=== PATIENT | male | born 1955 | race African-American/Black ===

== ENCOUNTER 2017-09-21 19:46 | Emergency (ER) | payer MEDICAID ==
[~2017-09-21] VITALS: Ht 182.9 cm; Wt 80.0 kg
[~2017-09-21 19:46] MED LIST: no home med
[2017-09-21 19:59] VITALS: BP 145/88
== END 2017-09-21 22:30 | disposition left against medical advice (07) ==
LOC: ER 20:09
DX: R10.9 Unspecified abdominal pain (principal); Z53.21 Procedure and treatment not carried out due to patient leaving prior to being seen by health care provider

== ENCOUNTER 2018-04-09 23:19 | Emergency (ER) | payer MEDICAID ==
[~2018-04-09] VITALS: Ht 180.3 cm; Wt 80.5 kg
[2018-04-10] MEDS ORDERED: LIDOCAINE HCL 1% 20ML VIAL (Pyxis) INJ INFIL ONE (02:00)
[2018-04-10] MEDS ORDERED: LIDOCAINE/EPINEPHR/TETRACAINE 3ML TP ONE (02:00)
[2018-04-10] MEDS ORDERED: IBUPROFEN 600MG TABLET PO ONE (02:00)
[2018-04-10 03:54] VITALS: BP 130/78
== END 2018-04-10 03:54 | disposition home or self-care (01) ==
LOC: ER 23:19
DX: S01.01XA Laceration without foreign body of scalp, initial encounter (principal); I10 Essential (primary) hypertension; F17.200 Nicotine dependence, unspecified, uncomplicated; K46.9 Unspecified abdominal hernia without obstruction or gangrene; W22.8XXA Striking against or struck by other objects, initial encounter; Y93.89 Activity, other specified; Y92.89 Other specified places as the place of occurrence of the external cause; Y99.8 Other external cause status
CPT/HCPCS: 12002; 70450; 99284; J3490

== ENCOUNTER 2018-10-08 15:39 | Inpatient (IN) | payer MEDICARE, MEDICAID ==
[~2018-10-08] VITALS: Ht 180.3 cm; Wt 81.2 kg
[2018-10-08] MEDS ORDERED: ALBUTEROL (0.083%) 2.5MG/3ML NEB HHN STA ×2 (16:25→18:33)
[2018-10-08] MEDS ORDERED: PREDNISONE 20MG TABLET PO STA (16:25)
[2018-10-08] MEDS ORDERED: IPRATROPIUM BROMIDE (0.02%) 0.5MG/2.5ML NEB HHN STA ×2 (16:25→18:33)
[2018-10-08] MEDS ORDERED: ASPIRIN 81MG TABLET PO ONE (16:30)
[2018-10-08] MEDS ORDERED: SODIUM CHLORIDE 0.9% 1000ML BAG (SEPSIS BOLUS) IV ONE (16:30)
[2018-10-08 16:51] LABS: HEMATOCRIT. 41.2 % (42.0-52.0); HEMOGLOBIN. 13.9 g/dL (14.0-18.0); MEAN CORPUSCULAR HEMOGLOBIN 32.8 pg (28.0-32.0); MEAN CORPUSCULAR VOLUME 97.5 fL (80.0-94.0); MEAN PLATELET VOLUME 10.3 fl (7.4-10.4); PLATELET 103 x1000/uL (130-400); RED BLOOD CELL COUNT 4.22 mill/uL (4.7-6.1)
[2018-10-08 16:52] LABS: CHLORIDE 111 mEq/L (98-107)
[2018-10-08 16:54] LABS: INR 1.1; PROTHROMBIN TIME 11.4 sec (9.6-11.0)
[2018-10-08 17:10] LABS: PLATELET ESTIMATE DECREASED
[2018-10-08 23:05] VITALS: BP 134/83
[2018-10-09] MEDS ORDERED: IPRATROPIUM/ALBUTEROL 0.5-3(2.5)MG/3ML NEB HHN PRN (01:45)
[2018-10-09] MEDS ORDERED: MORPHINE SULFATE 2 MG/ML CPJ (NOT FOR IM USE) IV PRN (01:45)
[2018-10-09 04:00] VITALS: BP 128/83
[2018-10-09] MEDS ORDERED: LORAZEPAM 2MG/ML CPJ IV PRN (06:30)
[2018-10-09] MEDS ORDERED: DIPHENHYDRAMINE 50MG/ML VIAL IV PRN (06:30)
[2018-10-09] MEDS ORDERED: DOCUSATE SODIUM 100MG CAPSULE PO PRN (06:30)
[2018-10-09] MEDS ORDERED: CLONIDINE 0.1MG TABLET PO PRN (06:30)
[2018-10-09] MEDS ORDERED: HYDRALAZINE 20MG/ML VIAL IV PRN (06:30)
[2018-10-09] MEDS ORDERED: ONDANSETRON HCL 4MG/2ML INJ IV PRN (06:30)
[2018-10-09] MEDS ORDERED: NA PHOS,M-B/NA PHOS,DI-BA ENEMA 118ML PR PRN (06:30)
[2018-10-09] MEDS ORDERED: MAGNESIUM/ALUMINUM HYDROXIDE/SIMETHICONE 30ML UDC PO PRN (06:30)
[2018-10-09] MEDS ORDERED: GUAIFENESIN 200MG/10ML SUGAR FREE UDC PO PRN (06:30)
[2018-10-09] MEDS ORDERED: HYDROCODONE/ACETAMINOPHEN 10/325MG TABLET PO PRN (06:30)
[2018-10-09 07:44] LABS: CHLORIDE 112 mEq/L (98-107)
[2018-10-09 08:00] VITALS: BP 117/77
[2018-10-09 08:06] LABS: BASOPHILS % 0.1 % (0.0-2.0); HEMATOCRIT. 38.1 % (42.0-52.0); HEMOGLOBIN. 12.8 g/dL (14.0-18.0); LYMPHOCYTES % 20.9 % (20.0-50.0); MEAN CORPUSCULAR HEMOGLOBIN 32.2 pg (28.0-32.0); MEAN CORPUSCULAR VOLUME 96.1 fL (80.0-94.0); MEAN PLATELET VOLUME 10.5 fl (7.4-10.4); MONOCYTES % 14.2 % (2.0-8.0); NEUTROPHILS % 64.8 % (40.0-76.0); PLATELET 90 x1000/uL (130-400); RED BLOOD CELL COUNT 3.96 mill/uL (4.7-6.1); RED CELL DISTRIBUTION WIDTH 13.8 % (11.6-14.6)
[2018-10-09] MEDS ORDERED: METHYLPREDNISOLONE SOD SUCC 125 MG/2 ML VIAL IV SCH (09:00)
[2018-10-09] MEDS: ENOXAPARIN 40MG/0.4ML SYR SUBCUT SCH (09:00)
[2018-10-09] MEDS ORDERED: FUROSEMIDE 40MG TABLET PO NR (10:00)
[2018-10-09] MEDS: ASPIRIN 81MG EC TABLET PO SCH (10:21)
[2018-10-09 12:00] VITALS: BP 124/81
[2018-10-09] MEDS: IPRATROPIUM/ALBUTEROL 0.5-3(2.5)MG/3ML NEB HHN SCH ×2 (12:32→20:59)
[2018-10-09 12:37] LABS: T4 FREE 1.43 ng/dL (0.76-1.46)
[2018-10-09 15:33] LABS: CLARITY URINE CLEAR (CLEAR); COLOR URINE YELLOW (YELLOW); KETONES URINE NEGATIVE (NEGATIVE); LEUKOCYTE ESTERASE URINE NEGATIVE (NEGATIVE); NITRITE URINE NEGATIVE (NEGATIVE); OCCULT BLOOD URINE NEGATIVE (NEGATIVE); PROTEIN URINE NEGATIVE (NEGATIVE); SPECIFIC GRAVITY URINE 1.011 (1.005-1.030); UROBILINOGEN URINE 0.2 E.U./dL (0.2-1.0)
[2018-10-09 16:00] VITALS: BP 117/77
[2018-10-09 16:58] LABS: CREATINE KINASE MB FRACTION 3.3 ng/mL (0.5-3.6)
[2018-10-09] MEDS: SODIUM CHLORIDE 0.9% INJ 3ML FLUSH IVF SCH (17:51)
[2018-10-09 18:04] LABS: *BARBITURATES SCREEN URINE NEGATIVE (NEGATIVE)
[2018-10-09 18:05] LABS: *BENZODIAZEPINES SCREEN URINE NEGATIVE (NEGATIVE); *COCAINE SCREEN URINE PRESUMTIVE POSITIVE (NEGATIVE); METHADONE URINE SCREEN NEGATIVE (NEGATIVE); OPIATES URINE SCREEN NEGATIVE (NEGATIVE)
[2018-10-09 18:07] LABS: *AMPHETAMINES SCREEN URINE NEGATIVE (NEGATIVE); CANNABINOID URINE SCREEN NEGATIVE (NEGATIVE); PHENCYCLIDINE URINE SCREEN NEGATIVE (NEGATIVE)
[2018-10-09 20:00] VITALS: BP 117/63
[2018-10-10] VITALS: BP 129/85
[2018-10-10 00:53] LABS: CREATINE KINASE MB FRACTION 3.3 ng/mL (0.5-3.6)
[2018-10-10] MEDS: IPRATROPIUM/ALBUTEROL 0.5-3(2.5)MG/3ML NEB HHN SCH ×4 (01:30→20:41)
[2018-10-10] MEDS: ACETAMINOPHEN 325MG TABLET PO PRN ×2 (03:00→17:19)
[2018-10-10 04:00] VITALS: BP 134/90
[2018-10-10] MEDS: SODIUM CHLORIDE 0.9% INJ 3ML FLUSH IVF SCH ×3 (05:57→21:08)
[2018-10-10 07:58] VITALS: BP 144/95
[2018-10-10] MEDS: ENOXAPARIN 40MG/0.4ML SYR SUBCUT SCH (08:24)
[2018-10-10] MEDS: ASPIRIN 81MG EC TABLET PO SCH (08:25)
[2018-10-10 08:56] LABS: BASOPHILS % 0.2 % (0.0-2.0); EOSINOPHILS % 0.4 % (0.0-5.0); HEMATOCRIT. 41.6 % (42.0-52.0); HEMOGLOBIN. 14.2 g/dL (14.0-18.0); LYMPHOCYTES % 25.7 % (20.0-50.0); MEAN CORPUSCULAR HEMOGLOBIN 33.1 pg (28.0-32.0); MEAN CORPUSCULAR VOLUME 97.2 fL (80.0-94.0); MEAN PLATELET VOLUME 10.8 fl (7.4-10.4); MONOCYTES % 7.7 % (2.0-8.0); PLATELET 93 x1000/uL (130-400); RED BLOOD CELL COUNT 4.28 mill/uL (4.7-6.1); RED CELL DISTRIBUTION WIDTH 14.2 % (11.6-14.6)
[2018-10-10 09:13] LABS: CHLORIDE 106 mEq/L (98-107)
[2018-10-10 11:43] VITALS: BP_SYST 116; BP_SYST 126; BP_DIAS 63; BP_DIAS 95
[2018-10-10 15:57] VITALS: BP 124/71
[2018-10-10] MEDS: LOSARTAN POTASSIUM 25 MG TABLET PO SCH (16:36)
[2018-10-10 20:00] VITALS: BP 124/86
[2018-10-10] MEDS: CARVEDILOL 3.125 MG TABLET PO SCH (21:08)
[2018-10-11] VITALS: BP 120/79
[2018-10-11] MEDS: ACETAMINOPHEN 325MG TABLET PO PRN ×2 (01:11→10:44)
[2018-10-11] MEDS: IPRATROPIUM/ALBUTEROL 0.5-3(2.5)MG/3ML NEB HHN SCH ×2 (02:31→13:51)
[2018-10-11 04:00] VITALS: BP 119/66
[2018-10-11] MEDS: SODIUM CHLORIDE 0.9% INJ 3ML FLUSH IVF SCH (06:28)
[2018-10-11 07:56] VITALS: BP 140/95
[2018-10-11] MEDS: LOSARTAN POTASSIUM 25 MG TABLET PO SCH (08:45)
[2018-10-11] MEDS: CARVEDILOL 3.125 MG TABLET PO SCH (08:45)
[2018-10-11] MEDS: ASPIRIN 81MG EC TABLET PO SCH (08:45)
[2018-10-11] MEDS: ENOXAPARIN 40MG/0.4ML SYR SUBCUT SCH (08:46)
[2018-10-11 10:06] VITALS: BP 140/95
[2018-10-11 10:54] LABS: BASOPHILS % 0.3 % (0.0-2.0); EOSINOPHILS % 1.7 % (0.0-5.0); HEMATOCRIT. 42.4 % (42.0-52.0); HEMOGLOBIN. 14.4 g/dL (14.0-18.0); LYMPHOCYTES % 23.9 % (20.0-50.0); MEAN CORPUSCULAR HEMOGLOBIN 32.7 pg (28.0-32.0); MEAN CORPUSCULAR VOLUME 96.6 fL (80.0-94.0); MEAN PLATELET VOLUME 10.9 fl (7.4-10.4); MONOCYTES % 13.8 % (2.0-8.0); NEUTROPHILS % 60.3 % (40.0-76.0); PLATELET 109 x1000/uL (130-400); RED BLOOD CELL COUNT 4.39 mill/uL (4.7-6.1); RED CELL DISTRIBUTION WIDTH 14.1 % (11.6-14.6)
[2018-10-11 11:16] LABS: CHLORIDE 106 mEq/L (98-107)
== END 2018-10-11 14:30 | disposition home or self-care (01) | DRG 140 ==
LOC: ER 15:50 → EDBEDREQ 16:35 → 8WST 18:36 → EDBEDREQTM 18:38 → EDBEDREQ 18:38 → ENRESERV 22:33
PROVIDERS: ADMIT Internal Medicine; ATTEND Internal Medicine
DX: J44.1 Chronic obstructive pulmonary disease with (acute) exacerbation (principal); J96.00 Acute respiratory failure, unspecified whether with hypoxia or hypercapnia; I27.20 Pulmonary hypertension, unspecified; I11.9 Hypertensive heart disease without heart failure; I10 Essential (primary) hypertension; D72.819 Decreased white blood cell count, unspecified; K43.9 Ventral hernia without obstruction or gangrene; F17.210 Nicotine dependence, cigarettes, uncomplicated; E78.5 Hyperlipidemia, unspecified; I08.0 Rheumatic disorders of both mitral and aortic valves; I42.9 Cardiomyopathy, unspecified; K42.9 Umbilical hernia without obstruction or gangrene
CPT/HCPCS: 36415; 71045; 74018; 76705; 80048; 80061; 80305; 82550; 82553; 83036; 83605; 83880; 84439; 84443; 84484; 85379; 93005; 93306; 94640; 99291; J1650; J2930; J7030; J7512; J7611; J7620

== ENCOUNTER 2019-01-12 11:13 | Inpatient (IN) | payer MEDICARE, MEDICAID ==
[~2019-01-12] VITALS: Ht 167.6 cm; Wt 80.7 kg
[2019-01-12 12:37] LABS: BASOPHILS % 0.2 % (0.0-2.0); EOSINOPHILS % 0.3 % (0.0-5.0); HEMATOCRIT. 41.4 % (42.0-52.0); HEMOGLOBIN. 13.8 g/dL (14.0-18.0); LYMPHOCYTES % 25.1 % (20.0-50.0); MEAN CORPUSCULAR HEMOGLOBIN 32.9 pg (28.0-32.0); MEAN CORPUSCULAR VOLUME 98.6 fL (80.0-94.0); MEAN PLATELET VOLUME 10.2 fl (7.4-10.4); MONOCYTES % 10.3 % (2.0-8.0); NEUTROPHILS % 64.1 % (40.0-76.0); PLATELET 98 x1000/uL (130-400); RED CELL DISTRIBUTION WIDTH 14.7 % (11.6-14.6)
[2019-01-12 12:47] LABS: CHLORIDE 111 mEq/L (98-107)
[2019-01-12] MEDS ORDERED: FUROSEMIDE 20MG/2ML VIAL IVP ONE (13:15)
[2019-01-12] MEDS ORDERED: IPRATROPIUM/ALBUTEROL 0.5-3(2.5)MG/3ML NEB HHN PRN (15:00)
[2019-01-12 15:40] LABS: BG BASE EXCESS -3.2 mmol/L (-2.0-2.0); BG CARBOXYHEMOGLOBIN 0.6 % (0.5-1.5); BG DEOXYHEMOGLOBIN 3.9 % (0.0-5.0); BG HCO3 ACT 21.2 mmol/L (22.0-26.0); BG METHEMOGLOBIN 0.1 % (0.0-1.5); BG OXYGEN SATURATION 96.1 % (92.0-98.5); BG OXYHEMOGLOBIN 95.4 % (94.0-97.0); BG PCO2 36.3 mmHg (35.0-45.0); BG PH 7.384 (7.350-7.450); BG SAMPLE SITE RIGHT RADIAL; BG VENT MODE NASAL CANNULA
[2019-01-12 16:00] LABS: *AMPHETAMINES SCREEN URINE NEGATIVE (NEGATIVE); *BARBITURATES SCREEN URINE NEGATIVE (NEGATIVE); *BENZODIAZEPINES SCREEN URINE NEGATIVE (NEGATIVE); *COCAINE SCREEN URINE PRESUMTIVE POSITIVE (NEGATIVE); CANNABINOID URINE SCREEN NEGATIVE (NEGATIVE); METHADONE URINE SCREEN NEGATIVE (NEGATIVE); OPIATES URINE SCREEN NEGATIVE (NEGATIVE); PHENCYCLIDINE URINE SCREEN NEGATIVE (NEGATIVE)
[2019-01-12] MEDS: FUROSEMIDE 40MG/4ML VIAL IVP SCH (19:10)
[2019-01-12] MEDS: METHYLPREDNISOLONE SOD SUCC 40 MG/ML VIAL IV SCH ×2 (19:10→22:24)
[2019-01-12] MEDS: SPIRONOLACTONE 25MG TABLET PO SCH (19:11)
[2019-01-12 20:00] VITALS: BP 125/73
[2019-01-12] MEDS ORDERED: HYDROCODONE/ACETAMINOPHEN 5/325MG TABLET PO PRN (20:00)
[2019-01-12] MEDS ORDERED: ONDANSETRON HCL 4MG/2ML INJ IV PRN (20:00)
[2019-01-12] MEDS ORDERED: ACETAMINOPHEN 325MG TABLET PO PRN (20:00)
[2019-01-12] MEDS ORDERED: CLONIDINE 0.1MG TABLET PO PRN (20:00)
[2019-01-12] MEDS ORDERED: DOCUSATE SODIUM 100MG CAPSULE PO PRN (20:00)
[2019-01-12] MEDS ORDERED: MAGNESIUM/ALUMINUM HYDROXIDE/SIMETHICONE 30ML UDC PO PRN (20:00)
[2019-01-12] MEDS: IPRATROPIUM/ALBUTEROL 0.5-3(2.5)MG/3ML NEB HHN SCH (21:06)
[2019-01-12 21:27] LABS: HEPATITIS B SURFACE ANTIGEN NEGATIVE
[2019-01-12] MEDS: HYDRALAZINE HCL 25MG TABLET PO SCH (21:27)
[2019-01-12] MEDS: LISINOPRIL 10MG TABLET PO SCH (21:27)
[2019-01-12 21:57] LABS: HEPATITIS A AB IGM NEGATIVE (NEGATIVE)
[2019-01-13] VITALS: BP 114/81
[2019-01-13] MEDS: IPRATROPIUM/ALBUTEROL 0.5-3(2.5)MG/3ML NEB HHN SCH ×4 (00:30→23:59)
[2019-01-13 04:00] VITALS: BP 104/67
[2019-01-13] MEDS: METHYLPREDNISOLONE SOD SUCC 40 MG/ML VIAL IV SCH ×3 (05:42→21:11)
[2019-01-13] MEDS: HYDRALAZINE HCL 25MG TABLET PO SCH ×3 (06:00→21:11)
[2019-01-13 07:23] LABS: BASOPHILS % 0.1 % (0.0-2.0); HEMATOCRIT. 40.8 % (42.0-52.0); HEMOGLOBIN. 13.6 g/dL (14.0-18.0); LYMPHOCYTES % 19.3 % (20.0-50.0); MEAN CORPUSCULAR HEMOGLOBIN 32.8 pg (28.0-32.0); MEAN CORPUSCULAR VOLUME 98.5 fL (80.0-94.0); MONOCYTES % 6.4 % (2.0-8.0); NEUTROPHILS % 74.2 % (40.0-76.0); PLATELET 89 x1000/uL (130-400); RED BLOOD CELL COUNT 4.14 mill/uL (4.7-6.1); RED CELL DISTRIBUTION WIDTH 14.7 % (11.6-14.6)
[2019-01-13 07:47] LABS: CHLORIDE 106 mEq/L (98-107)
[2019-01-13 08:00] VITALS: BP 114/64
[2019-01-13 08:00] LABS: PHOSPHORUS 3.1 mg/dL (2.5-4.9)
[2019-01-13] MEDS: LISINOPRIL 10MG TABLET PO SCH ×2 (08:57→21:11)
[2019-01-13] MEDS: SPIRONOLACTONE 25MG TABLET PO SCH (08:57)
[2019-01-13] MEDS: FUROSEMIDE 40MG/4ML VIAL IVP SCH ×2 (08:58→16:53)
[2019-01-13 12:00] VITALS: BP 107/61
[2019-01-13] MEDS: POTASSIUM CHLORIDE 20MEQ TABLET SR PO SCH (14:55)
[2019-01-13 16:14] VITALS: BP 111/66
[2019-01-13 20:00] VITALS: BP 115/59
[2019-01-14] VITALS: BP 108/51
[2019-01-14 04:00] VITALS: BP 111/63
[2019-01-14] MEDS: IPRATROPIUM/ALBUTEROL 0.5-3(2.5)MG/3ML NEB HHN SCH ×5 (04:06→21:29)
[2019-01-14] MEDS: METHYLPREDNISOLONE SOD SUCC 40 MG/ML VIAL IV SCH ×2 (06:11→14:09)
[2019-01-14] MEDS: HYDRALAZINE HCL 25MG TABLET PO SCH ×3 (06:11→22:00)
[2019-01-14 07:54] LABS: HEMATOCRIT. 39.3 % (42.0-52.0); HEMOGLOBIN. 13.4 g/dL (14.0-18.0); MEAN CORPUSCULAR HEMOGLOBIN 33.1 pg (28.0-32.0); MEAN CORPUSCULAR VOLUME 97.2 fL (80.0-94.0); PLATELET 103 x1000/uL (130-400); RED BLOOD CELL COUNT 4.05 mill/uL (4.7-6.1); RED CELL DISTRIBUTION WIDTH 14.3 % (11.6-14.6)
[2019-01-14 08:00] VITALS: BP 134/76
[2019-01-14 08:11] LABS: CHLORIDE 101 mEq/L (98-107)
[2019-01-14] MEDS: FUROSEMIDE 40MG/4ML VIAL IVP SCH ×2 (08:19→16:57)
[2019-01-14] MEDS: POTASSIUM CHLORIDE 20MEQ TABLET SR PO SCH (08:19)
[2019-01-14] MEDS: LISINOPRIL 10MG TABLET PO SCH ×2 (08:20→21:08)
[2019-01-14] MEDS: SPIRONOLACTONE 25MG TABLET PO SCH (08:20)
[2019-01-14 09:46] LABS: PLATELET ESTIMATE SLIGHTLY DECREASED
[2019-01-14 12:00] VITALS: BP 112/70
[2019-01-14 16:00] VITALS: BP 114/77
[2019-01-14 20:00] VITALS: BP 120/75
[2019-01-15] VITALS: BP 116/59
[2019-01-15] MEDS: IPRATROPIUM/ALBUTEROL 0.5-3(2.5)MG/3ML NEB HHN SCH ×4 (01:12→12:03)
[2019-01-15 04:00] VITALS: BP 117/85
[2019-01-15] MEDS: HYDRALAZINE HCL 25MG TABLET PO SCH (05:32)
[2019-01-15 07:10] LABS: HEMATOCRIT. 40.2 % (42.0-52.0); HEMOGLOBIN. 13.7 g/dL (14.0-18.0); LYMPHOCYTES % 11.1 % (20.0-50.0); MEAN CORPUSCULAR HEMOGLOBIN 33.1 pg (28.0-32.0); MEAN CORPUSCULAR VOLUME 97.2 fL (80.0-94.0); MEAN PLATELET VOLUME 9.9 fl (7.4-10.4); MONOCYTES % 10.3 % (2.0-8.0); NEUTROPHILS % 78.6 % (40.0-76.0); PLATELET 98 x1000/uL (130-400); RED BLOOD CELL COUNT 4.13 mill/uL (4.7-6.1); RED CELL DISTRIBUTION WIDTH 14.3 % (11.6-14.6)
[2019-01-15 07:50] LABS: CHLORIDE 99 mEq/L (98-107)
[2019-01-15 08:00] VITALS: BP 111/60
[2019-01-15] MEDS: POTASSIUM CHLORIDE 20MEQ TABLET SR PO SCH (08:35)
[2019-01-15] MEDS: SPIRONOLACTONE 25MG TABLET PO SCH (08:35)
[2019-01-15] MEDS: FUROSEMIDE 40MG/4ML VIAL IVP SCH (08:35)
[2019-01-15] MEDS: LISINOPRIL 10MG TABLET PO SCH (08:35)
[2019-01-15] MEDS ORDERED: PREDNISONE 20MG TABLET PO SCH (09:00)
[2019-01-15 11:54] VITALS: BP 123/84
[2019-01-15 12:00] VITALS: BP 128/65
== END 2019-01-15 15:01 | disposition home or self-care (01) | DRG 133 ==
LOC: ER 11:13 → 7WST 13:40 → EDBEDREQ 13:42 → EDBEDREQTM 13:42 → ENRESERV 14:53
PROVIDERS: ADMIT Family Medicine Adult Medicine; ATTEND Family Medicine Adult Medicine
DX: J96.20 Acute and chronic respiratory failure, unspecified whether with hypoxia or hypercapnia (principal); I50.23 Acute on chronic systolic (congestive) heart failure; I47.2 Ventricular tachycardia; D69.6 Thrombocytopenia, unspecified; I27.20 Pulmonary hypertension, unspecified; E44.1 Mild protein-calorie malnutrition; I42.9 Cardiomyopathy, unspecified; J68.0 Bronchitis and pneumonitis due to chemicals, gases, fumes and vapors; F10.10 Alcohol abuse, uncomplicated; F14.10 Cocaine abuse, uncomplicated; F17.210 Nicotine dependence, cigarettes, uncomplicated; I11.0 Hypertensive heart disease with heart failure; I25.10 Atherosclerotic heart disease of native coronary artery without angina pectoris; K43.9 Ventral hernia without obstruction or gangrene; B19.20 Unspecified viral hepatitis C without hepatic coma; I49.3 Ventricular premature depolarization; K42.9 Umbilical hernia without obstruction or gangrene; Z91.19 Patient's noncompliance with other medical treatment and regimen; Z86.73 Personal history of transient ischemic attack (TIA), and cerebral infarction without residual deficits; Z91.14 Patient's other noncompliance with medication regimen; Z68.28 Body mass index [BMI] 28.0-28.9, adult; Z71.6 Tobacco abuse counseling
CPT/HCPCS: 36415; 36600; 71045; 80048; 80305; 82375; 82805; 83735; 83880; 84100; 84484; 86705; 86709; 86803; 87340; 93005; 93970; 94640; 99285; J1940; J2920; J7512; J7620

== ENCOUNTER 2019-02-01 09:05 | Inpatient (IN) | payer MEDICARE, MEDICAID ==
[~2019-02-01] VITALS: Ht 177.8 cm; Wt 81.6 kg
[2019-02-01] MEDS ORDERED: ALBUTEROL (0.083%) 2.5MG/3ML NEB HHN STA (09:40)
[2019-02-01] MEDS ORDERED: MAGNESIUM/ALUMINUM HYDROXIDE/SIMETHICONE 30ML UDC PO STA (09:40)
[2019-02-01] MEDS ORDERED: IPRATROPIUM BROMIDE (0.02%) 0.5MG/2.5ML NEB HHN STA (09:40)
[2019-02-01] MEDS ORDERED: METHYLPREDNISOLONE SOD SUCC 125 MG/2 ML VIAL IV STA (09:40)
[2019-02-01] MEDS ORDERED: ASPIRIN 81MG TABLET PO ONE (09:45)
[2019-02-01] MEDS ORDERED: FUROSEMIDE 40MG/4ML VIAL IV ONE (09:45)
[2019-02-01 10:05] LABS: CHLORIDE 106 mEq/L (98-107)
[2019-02-01 10:08] LABS: INR 1.2; PARTIAL THROMBOPLASTIN TIME 28.5 sec (23.4-31.0); PROTHROMBIN TIME 12.1 sec (9.6-11.0)
[2019-02-01 10:28] LABS: BASOPHILS % 0.1 % (0.0-2.0); HEMATOCRIT. 45.5 % (42.0-52.0); HEMOGLOBIN. 15.3 g/dL (14.0-18.0); LYMPHOCYTES % 10.4 % (20.0-50.0); MEAN CORPUSCULAR VOLUME 97.9 fL (80.0-94.0); MEAN PLATELET VOLUME 9.7 fl (7.4-10.4); MONOCYTES % 6.6 % (2.0-8.0); NEUTROPHILS % 82.9 % (40.0-76.0); PLATELET 96 x1000/uL (130-400); RED BLOOD CELL COUNT 4.64 mill/uL (4.7-6.1); RED CELL DISTRIBUTION WIDTH 14.3 % (11.6-14.6)
[2019-02-01 12:00] VITALS: BP 107/59
[2019-02-01 13:44] VITALS: BP 132/65
[2019-02-01] MEDS ORDERED: GUAIFENESIN 200MG/10ML SUGAR FREE UDC PO PRN (14:00)
[2019-02-01] MEDS ORDERED: ZOLPIDEM TARTRATE 5MG TABLET PO PRN (14:00)
[2019-02-01] MEDS ORDERED: MAGNESIUM/ALUMINUM HYDROXIDE/SIMETHICONE 30ML UDC PO PRN (14:00)
[2019-02-01] MEDS ORDERED: CLONIDINE 0.1MG TABLET PO PRN (14:00)
[2019-02-01] MEDS ORDERED: TRAMADOL 50MG TABLET PO PRN (14:00)
[2019-02-01] MEDS ORDERED: ACETAMINOPHEN 325MG TABLET PO PRN (14:00)
[2019-02-01] MEDS ORDERED: LORAZEPAM 0.5MG TABLET PO PRN (14:00)
[2019-02-01] MEDS ORDERED: ONDANSETRON HCL 4MG/2ML INJ IV PRN (14:00)
[2019-02-01] MEDS ORDERED: NITROGLYCERIN 0.4MG TABLET SL SL PRN (14:00)
[2019-02-01] MEDS ORDERED: DOCUSATE SODIUM 100MG CAPSULE PO PRN (14:00)
[2019-02-01] MEDS ORDERED: IPRATROPIUM/ALBUTEROL 0.5-3(2.5)MG/3ML NEB NEB PRN (14:00)
[2019-02-01] MEDS ORDERED: FUROSEMIDE 100MG/10ML VIAL IVP SCH (15:00)
[2019-02-01] MEDS: ENOXAPARIN 40MG/0.4ML SYR SUBCUT SCH (15:41)
[2019-02-01] MEDS: ASPIRIN 325MG EC TABLET PO SCH (15:44)
[2019-02-01 16:00] VITALS: BP 109/61
[2019-02-01 16:40] LABS: CREATINE KINASE MB FRACTION 1.8 ng/mL (0.5-3.6)
[2019-02-01] MEDS ORDERED: SPIRONOLACTONE 25MG TABLET PO SCH (18:00)
[2019-02-01 20:00] VITALS: BP 92/51
[2019-02-01] MEDS ORDERED: MORPHINE SULFATE 2 MG/ML CPJ (NOT FOR IM USE) IV PRN (20:00)
[2019-02-01] MEDS: SODIUM CHLORIDE 0.9% 1,000 ML IV SCH (22:17)
[2019-02-01] MEDS: GUAIFENESIN 600MG ER TABLET PO SCH (22:19)
[2019-02-01] MEDS: FAMOTIDINE 20MG TABLET PO SCH (22:19)
[2019-02-02] VITALS: BP 106/59
[2019-02-02 00:49] LABS: CREATINE KINASE MB FRACTION 1.5 ng/mL (0.5-3.6)
[2019-02-02 03:27] LABS: *AMPHETAMINES SCREEN URINE NEGATIVE (NEGATIVE); *BARBITURATES SCREEN URINE NEGATIVE (NEGATIVE); *BENZODIAZEPINES SCREEN URINE NEGATIVE (NEGATIVE); *COCAINE SCREEN URINE NEGATIVE (NEGATIVE); METHADONE URINE SCREEN NEGATIVE (NEGATIVE); OPIATES URINE SCREEN NEGATIVE (NEGATIVE)
[2019-02-02 03:28] LABS: CANNABINOID URINE SCREEN NEGATIVE (NEGATIVE); PHENCYCLIDINE URINE SCREEN NEGATIVE (NEGATIVE)
[2019-02-02 04:00] VITALS: BP 124/92
[2019-02-02 07:51] LABS: CHLORIDE 105 mEq/L (98-107)
[2019-02-02 08:00] VITALS: BP 130/90
[2019-02-02 08:03] LABS: AMYLASE 616 IU/L (25-115)
[2019-02-02 08:23] LABS: BASOPHILS % 0.1 % (0.0-2.0); HEMATOCRIT. 41.4 % (42.0-52.0); HEMOGLOBIN. 14.1 g/dL (14.0-18.0); LYMPHOCYTES % 12.4 % (20.0-50.0); MEAN CORPUSCULAR VOLUME 97.1 fL (80.0-94.0); MEAN PLATELET VOLUME 10.6 fl (7.4-10.4); MONOCYTES % 8.8 % (2.0-8.0); NEUTROPHILS % 78.7 % (40.0-76.0); PLATELET 89 x1000/uL (130-400); RED BLOOD CELL COUNT 4.27 mill/uL (4.7-6.1); RED CELL DISTRIBUTION WIDTH 13.9 % (11.6-14.6)
[2019-02-02] MEDS: FAMOTIDINE 20MG TABLET PO SCH ×2 (08:31→22:08)
[2019-02-02] MEDS: ASPIRIN 325MG EC TABLET PO SCH (08:31)
[2019-02-02] MEDS: GUAIFENESIN 600MG ER TABLET PO SCH ×2 (08:31→22:08)
[2019-02-02 12:00] VITALS: BP 104/62
[2019-02-02] MEDS: ENOXAPARIN 40MG/0.4ML SYR SUBCUT SCH (14:24)
[2019-02-02] MEDS: SODIUM CHLORIDE 0.9% 1,000 ML IV SCH (14:25)
[2019-02-02 16:00] VITALS: BP 100/53
[2019-02-02 20:00] VITALS: BP 107/54
[2019-02-03] VITALS: BP 109/63
[2019-02-03 04:00] VITALS: BP 114/65
[2019-02-03 07:56] LABS: CHLORIDE 105 mEq/L (98-107)
[2019-02-03 07:59] LABS: BASOPHILS % 0.2 % (0.0-2.0); EOSINOPHILS % 1.1 % (0.0-5.0); HEMATOCRIT. 41.7 % (42.0-52.0); HEMOGLOBIN. 14.2 g/dL (14.0-18.0); LYMPHOCYTES % 27.5 % (20.0-50.0); MEAN CORPUSCULAR HEMOGLOBIN 32.8 pg (28.0-32.0); MEAN CORPUSCULAR VOLUME 96.4 fL (80.0-94.0); MONOCYTES % 10.5 % (2.0-8.0); NEUTROPHILS % 60.7 % (40.0-76.0); RED BLOOD CELL COUNT 4.33 mill/uL (4.7-6.1); RED CELL DISTRIBUTION WIDTH 13.7 % (11.6-14.6)
[2019-02-03 08:08] LABS: AMYLASE 417 IU/L (25-115)
[2019-02-03] MEDS: FAMOTIDINE 20MG TABLET PO SCH ×2 (08:14→22:15)
[2019-02-03] MEDS: ASPIRIN 325MG EC TABLET PO SCH (08:14)
[2019-02-03] MEDS: GUAIFENESIN 600MG ER TABLET PO SCH ×2 (08:23→22:17)
[2019-02-03] MEDS ORDERED: FUROSEMIDE 20MG TABLET PO SCH (10:00)
[2019-02-03 11:48] LABS: PLATELET 98 x1000/uL (130-400)
[2019-02-03] MEDS: FUROSEMIDE 40MG/4ML VIAL IVP SCH (17:33)
[2019-02-03] MEDS: SPIRONOLACTONE 25MG TABLET PO SCH (17:33)
[2019-02-03] MEDS: ENOXAPARIN 40MG/0.4ML SYR SUBCUT SCH (17:34)
[2019-02-03 20:00] VITALS: BP 126/81
[2019-02-03] MEDS: CARVEDILOL 3.125 MG TABLET PO SCH (22:15)
[2019-02-03] MEDS: LISINOPRIL 5MG TABLET PO SCH (22:17)
[2019-02-04] VITALS: BP 118/62
[2019-02-04 04:00] VITALS: BP 109/71
[2019-02-04] MEDS: FUROSEMIDE 40MG/4ML VIAL IVP SCH (06:13)
[2019-02-04] MEDS: SPIRONOLACTONE 25MG TABLET PO SCH (06:16)
[2019-02-04 07:12] LABS: CHLORIDE 105 mEq/L (98-107)
[2019-02-04 07:16] LABS: BASOPHILS % 0.2 % (0.0-2.0); EOSINOPHILS % 2.6 % (0.0-5.0); HEMATOCRIT. 40.6 % (42.0-52.0); HEMOGLOBIN. 13.9 g/dL (14.0-18.0); LYMPHOCYTES % 31.7 % (20.0-50.0); MEAN CORPUSCULAR HEMOGLOBIN 33.3 pg (28.0-32.0); MEAN CORPUSCULAR VOLUME 97.2 fL (80.0-94.0); MEAN PLATELET VOLUME 9.9 fl (7.4-10.4); MONOCYTES % 12.4 % (2.0-8.0); NEUTROPHILS % 53.1 % (40.0-76.0); PLATELET 98 x1000/uL (130-400); RED BLOOD CELL COUNT 4.18 mill/uL (4.7-6.1); RED CELL DISTRIBUTION WIDTH 14.2 % (11.6-14.6)
[2019-02-04 07:27] LABS: AMYLASE 420 IU/L (25-115)
[2019-02-04 08:00] VITALS: BP 104/105
[2019-02-04] MEDS ORDERED: ASPIRIN 81MG EC TABLET PO SCH (09:00)
[2019-02-04] MEDS: CARVEDILOL 3.125 MG TABLET PO SCH (09:00)
[2019-02-04] MEDS: FAMOTIDINE 20MG TABLET PO SCH (09:25)
[2019-02-04] MEDS: GUAIFENESIN 600MG ER TABLET PO SCH (09:25)
[2019-02-04] MEDS: LISINOPRIL 5MG TABLET PO SCH (09:27)
[2019-02-04 11:23] VITALS: BP 136/89
[2019-02-04 12:00] VITALS: BP 136/80
== END 2019-02-04 14:30 | disposition home health service (06) | DRG 282 ==
LOC: ER 09:05 → 8WST 12:39 → EDBEDREQTM 12:43 → EDBEDREQ 12:43 → ENRESERV 12:46
PROVIDERS: ADMIT Internal Medicine; ATTEND Internal Medicine
DX: K85.10 Biliary acute pancreatitis without necrosis or infection (principal); N17.9 Acute kidney failure, unspecified; I27.20 Pulmonary hypertension, unspecified; D69.6 Thrombocytopenia, unspecified; E44.1 Mild protein-calorie malnutrition; I50.9 Heart failure, unspecified; I11.0 Hypertensive heart disease with heart failure; I42.9 Cardiomyopathy, unspecified; J44.9 Chronic obstructive pulmonary disease, unspecified; R74.0 Nonspecific elevation of levels of transaminase and lactic acid dehydrogenase [LDH]; J45.909 Unspecified asthma, uncomplicated; K86.1 Other chronic pancreatitis; F17.210 Nicotine dependence, cigarettes, uncomplicated; Z68.25 Body mass index [BMI] 25.0-25.9, adult; Z79.899 Other long term (current) drug therapy; Z86.73 Personal history of transient ischemic attack (TIA), and cerebral infarction without residual deficits; Z91.19 Patient's noncompliance with other medical treatment and regimen; Z82.49 Family history of ischemic heart disease and other diseases of the circulatory system
CPT/HCPCS: 36415; 71045; 74176; 74181; 76705; 80048; 80061; 80305; 82150; 82550; 82553; 83036; 83735; 83880; 84484; 87804; 93306; 93970; 94640; 96374; 96375; 97162; 97166; 99285; J1650; J1940; J2930; J7030; J7611; J7620

== ENCOUNTER 2019-05-05 15:00 | Inpatient (IN) | payer MEDICARE, MEDICAID ==
[~2019-05-05] VITALS: Ht 182.9 cm; Wt 77.1 kg
[~2019-05-05 15:00] MED LIST changes: +ASPI-1158 MT; +ATOR-2 PO; +CARV12.545 PO; +FURO40TA5 PO; +LOSA50TA41 PO; -no home med
[2019-05-05] MEDS ORDERED: KETOROLAC 30MG/ML VIAL IV STA (22:36)
[2019-05-05] MEDS ORDERED: SODIUM CHLORIDE 0.9% 1,000 ML IV ONE (22:36)
[2019-05-05] MEDS ORDERED: DILTIAZEM HCL 5MG/ML 5ML VIAL IV ONE (23:00)
[2019-05-06 00:15] LABS: BASOPHILS % 0.4 % (0.0-2.0); EOSINOPHILS % 0.6 % (0.0-5.0); HEMATOCRIT. 45.1 % (42.0-52.0); HEMOGLOBIN. 14.9 g/dL (14.0-18.0); LYMPHOCYTES % 26.1 % (20.0-50.0); MEAN CORPUSCULAR HEMOGLOBIN 32.7 pg (28.0-32.0); MEAN CORPUSCULAR VOLUME 99.3 fL (80.0-94.0); MEAN PLATELET VOLUME 10.2 fl (7.4-10.4); MONOCYTES % 12.7 % (2.0-8.0); NEUTROPHILS % 60.2 % (40.0-76.0); PLATELET 112 x1000/uL (130-400); RED BLOOD CELL COUNT 4.55 mill/uL (4.7-6.1); RED CELL DISTRIBUTION WIDTH 15.5 % (11.6-14.6)
[2019-05-06 00:20] LABS: CHLORIDE 112 mEq/L (98-107)
[2019-05-06 00:25] LABS: INR 1.2; PROTHROMBIN TIME 12.3 sec (9.6-11.0)
[2019-05-06 01:01] LABS: CLARITY URINE CLEAR (CLEAR); COLOR URINE DARK YELLOW (YELLOW); KETONES URINE TRACE (NEGATIVE); LEUKOCYTE ESTERASE URINE NEGATIVE (NEGATIVE); NITRITE URINE NEGATIVE (NEGATIVE); OCCULT BLOOD URINE NEGATIVE (NEGATIVE); PROTEIN URINE 1+ (NEGATIVE); SPECIFIC GRAVITY URINE 1.027 (1.005-1.030); UROBILINOGEN URINE 0.2 E.U./dL (0.2-1.0)
[2019-05-06] MEDS ORDERED: DILTIAZEM HCL 5MG/ML 5ML VIAL IV ONE (01:30)
[2019-05-06] MEDS ORDERED: DILTIAZEM HCL 60MG TABLET PO ONE (01:30)
[2019-05-06] MEDS ORDERED: ASPIRIN 81MG TABLET PO NR (02:00)
[2019-05-06] MEDS ORDERED: HYDROCODONE/ACETAMINOPHEN 10/325MG TABLET PO PRN (06:45)
[2019-05-06] MEDS ORDERED: CLONIDINE 0.1MG TABLET PO PRN (06:45)
[2019-05-06] MEDS ORDERED: IPRATROPIUM/ALBUTEROL 0.5-3(2.5)MG/3ML NEB HHN PRN (06:45)
[2019-05-06] MEDS ORDERED: LORAZEPAM 2MG/ML CPJ IV PRN (06:45)
[2019-05-06] MEDS ORDERED: DIPHENHYDRAMINE 50MG/ML VIAL IV PRN (06:45)
[2019-05-06] MEDS ORDERED: MAGNESIUM/ALUMINUM HYDROXIDE/SIMETHICONE 30ML UDC PO PRN (06:45)
[2019-05-06] MEDS ORDERED: ACETAMINOPHEN 325MG TABLET PO PRN (06:45)
[2019-05-06] MEDS ORDERED: ONDANSETRON HCL 4MG/2ML INJ IV PRN (06:45)
[2019-05-06] MEDS ORDERED: GUAIFENESIN 200MG/10ML SUGAR FREE UDC PO PRN (06:45)
[2019-05-06] MEDS ORDERED: DOCUSATE SODIUM 100MG CAPSULE PO PRN (06:45)
[2019-05-06] MEDS ORDERED: ENOXAPARIN 40MG/0.4ML SYR SUBCUT SCH (09:00)
[2019-05-06] MEDS ORDERED: FUROSEMIDE 40MG/4ML VIAL IVP SCH (10:30)
[2019-05-06] MEDS ORDERED: FUROSEMIDE 20MG/2ML VIAL IV SCH (10:45)
[2019-05-06] MEDS: SODIUM CHLORIDE 0.9% INJ 3ML FLUSH IVF SCH ×2 (14:06→22:02)
[2019-05-06] MEDS: FUROSEMIDE 40MG/4ML VIAL IVP NR ×2 (16:31→17:55)
[2019-05-06 17:20] VITALS: BP 117/90
[2019-05-06] MEDS ORDERED: HYDRALAZINE 20MG/ML VIAL IV PRN (17:30)
[2019-05-06 18:31] VITALS: BP 117/90
[2019-05-06 18:58] LABS: *AMPHETAMINES SCREEN URINE NEGATIVE (NEGATIVE); *BARBITURATES SCREEN URINE NEGATIVE (NEGATIVE); *BENZODIAZEPINES SCREEN URINE NEGATIVE (NEGATIVE); *COCAINE SCREEN URINE PRESUMTIVE POSITIVE (NEGATIVE); METHADONE URINE SCREEN NEGATIVE (NEGATIVE)
[2019-05-06 18:59] LABS: CANNABINOID URINE SCREEN NEGATIVE (NEGATIVE); OPIATES URINE SCREEN NEGATIVE (NEGATIVE); PHENCYCLIDINE URINE SCREEN NEGATIVE (NEGATIVE)
[2019-05-06 20:00] VITALS: BP 104/72
[2019-05-06] MEDS ORDERED: INFLUENZA VIRUS VACCINE(AFLURIA) 0.5ML SYR IM ONE (20:15)
[2019-05-06] MEDS ORDERED: PNEUMOCOCCAL 23-VAL P-SAC VAC 0.5 ML IM ONE (20:15)
[2019-05-06] MEDS: DILTIAZEM HCL 60MG TABLET PO SCH (22:00)
[2019-05-06] MEDS: ENOXAPARIN 80MG/0.8ML SYR SUBCUT SCH (22:01)
[2019-05-07] VITALS: BP 117/88
[2019-05-07 01:21] LABS: CREATINE KINASE MB FRACTION 4.6 ng/mL (0.5-3.6)
[2019-05-07 04:00] VITALS: BP 114/79
[2019-05-07] MEDS: DILTIAZEM HCL 60MG TABLET PO SCH ×4 (06:17→19:13)
[2019-05-07] MEDS: SODIUM CHLORIDE 0.9% INJ 3ML FLUSH IVF SCH ×3 (06:19→22:13)
[2019-05-07 07:51] LABS: BASOPHILS % 0.2 % (0.0-2.0); EOSINOPHILS % 0.3 % (0.0-5.0); HEMATOCRIT. 40.8 % (42.0-52.0); HEMOGLOBIN. 13.8 g/dL (14.0-18.0); LYMPHOCYTES % 17.8 % (20.0-50.0); MEAN CORPUSCULAR HEMOGLOBIN 33.1 pg (28.0-32.0); MEAN CORPUSCULAR VOLUME 98.2 fL (80.0-94.0); MONOCYTES % 10.4 % (2.0-8.0); NEUTROPHILS % 71.3 % (40.0-76.0); RED BLOOD CELL COUNT 4.16 mill/uL (4.7-6.1); RED CELL DISTRIBUTION WIDTH 15.3 % (11.6-14.6)
[2019-05-07 08:00] VITALS: BP 116/81
[2019-05-07 09:07] LABS: CHLORIDE 110 mEq/L (98-107)
[2019-05-07] MEDS: ENOXAPARIN 80MG/0.8ML SYR SUBCUT SCH ×2 (10:48→22:13)
[2019-05-07] MEDS: FUROSEMIDE 40MG/4ML VIAL IV SCH ×2 (10:49→19:12)
[2019-05-07] MEDS: POTASSIUM CHLORIDE 20MEQ TABLET SR PO SCH (10:51)
[2019-05-07 12:00] VITALS: BP 117/70
[2019-05-07 13:38] LABS: PLATELET 101 x1000/uL (130-400)
[2019-05-07] MEDS: MORPHINE SULFATE 2 MG/ML CPJ (NOT FOR IM USE) IV PRN ×3 (14:48→19:25)
[2019-05-07 16:00] VITALS: BP 113/81
[2019-05-07] MEDS ORDERED: DIGOXIN 125MCG TABLET PO SCH (18:00)
[2019-05-07 20:00] VITALS: BP 106/51
[2019-05-08] VITALS (7 sets, daily range): BP systolic 94–132; BP diastolic 41–70
[2019-05-08] MEDS: DILTIAZEM HCL 60MG TABLET PO SCH ×3 (05:55→12:51)
[2019-05-08] MEDS: SODIUM CHLORIDE 0.9% INJ 3ML FLUSH IVF SCH ×3 (05:55→20:20)
[2019-05-08] MEDS: FUROSEMIDE 40MG/4ML VIAL IV SCH ×2 (10:02→17:15)
[2019-05-08] MEDS: POTASSIUM CHLORIDE 20MEQ TABLET SR PO SCH (10:02)
[2019-05-08] MEDS: ENOXAPARIN 80MG/0.8ML SYR SUBCUT SCH ×2 (10:03→20:15)
[2019-05-08] MEDS: LOSARTAN POTASSIUM 25 MG TABLET PO SCH ×2 (14:15→15:03)
[2019-05-08] MEDS ORDERED: FUROSEMIDE 40MG/4ML VIAL IVP NR (14:15)
[2019-05-08] MEDS: DILTIAZEM HCL 30MG TABLET PO SCH (17:16)
[2019-05-09] VITALS: BP 98/52
[2019-05-09 04:00] VITALS: BP 113/76
[2019-05-09] MEDS: DILTIAZEM HCL 30MG TABLET PO SCH ×4 (06:25→18:08)
[2019-05-09] MEDS: FUROSEMIDE 40MG/4ML VIAL IV SCH ×2 (06:26→18:08)
[2019-05-09 07:49] LABS: DIGOXIN 0.3 ng/mL (0.9-2.0)
[2019-05-09 08:00] VITALS: BP 120/82
[2019-05-09] MEDS: LOSARTAN POTASSIUM 25 MG TABLET PO SCH (08:50)
[2019-05-09] MEDS: ENOXAPARIN 80MG/0.8ML SYR SUBCUT SCH ×2 (09:00→22:09)
[2019-05-09] MEDS: POTASSIUM CHLORIDE 20MEQ TABLET SR PO SCH (09:00)
[2019-05-09 10:44] LABS: BASOPHILS % 0.2 % (0.0-2.0); EOSINOPHILS % 0.3 % (0.0-5.0); HEMATOCRIT. 43.4 % (42.0-52.0); HEMOGLOBIN. 14.4 g/dL (14.0-18.0); LYMPHOCYTES % 15.8 % (20.0-50.0); MEAN CORPUSCULAR HEMOGLOBIN 32.7 pg (28.0-32.0); MEAN PLATELET VOLUME 11.8 fl (7.4-10.4); MONOCYTES % 12.2 % (2.0-8.0); NEUTROPHILS % 71.5 % (40.0-76.0); PLATELET 115 x1000/uL (130-400); RED CELL DISTRIBUTION WIDTH 15.6 % (11.6-14.6)
[2019-05-09 10:54] LABS: MEAN CORPUSCULAR VOLUME 98.7 fL (80.0-94.0)
[2019-05-09 12:00] VITALS: BP 119/87
[2019-05-09] MEDS: SODIUM CHLORIDE 0.9% INJ 3ML FLUSH IVF SCH ×2 (14:15→22:09)
[2019-05-09 16:00] VITALS: BP 113/68
[2019-05-09 20:00] VITALS: BP 108/60
[2019-05-10] VITALS: BP 121/74
[2019-05-10 04:00] VITALS: BP 98/50
[2019-05-10] MEDS: SODIUM CHLORIDE 0.9% INJ 3ML FLUSH IVF SCH ×3 (06:39→22:00)
[2019-05-10] MEDS: DILTIAZEM HCL 30MG TABLET PO SCH ×4 (06:41→17:45)
[2019-05-10] MEDS: FUROSEMIDE 40MG/4ML VIAL IV SCH (06:41)
[2019-05-10 08:00] VITALS: BP_SYST 116; BP_SYST 97; BP_DIAS 116; BP_DIAS 70
[2019-05-10] MEDS: LOSARTAN POTASSIUM 25 MG TABLET PO SCH (09:27)
[2019-05-10] MEDS: POTASSIUM CHLORIDE 20MEQ TABLET SR PO SCH (09:27)
[2019-05-10] MEDS: ENOXAPARIN 80MG/0.8ML SYR SUBCUT SCH (09:27)
[2019-05-10 12:00] VITALS: BP 110/70
[2019-05-10 16:00] VITALS: BP 108/70
[2019-05-10] MEDS: APIXABAN 5 MG TABLET PO SCH (17:14)
[2019-05-10 20:00] VITALS: BP 105/70
[2019-05-11] VITALS: BP 100/56
[2019-05-11 04:00] VITALS: BP 129/76
[2019-05-11] MEDS: SODIUM CHLORIDE 0.9% INJ 3ML FLUSH IVF SCH ×3 (06:14→21:58)
[2019-05-11] MEDS: DILTIAZEM HCL 30MG TABLET PO SCH ×5 (06:15→18:00)
[2019-05-11 06:43] LABS: CHLORIDE 107 mEq/L (98-107)
[2019-05-11 06:46] LABS: HEMATOCRIT. 39.8 % (42.0-52.0); HEMOGLOBIN. 13.5 g/dL (14.0-18.0); MEAN CORPUSCULAR HEMOGLOBIN 33.4 pg (28.0-32.0); MEAN CORPUSCULAR VOLUME 98.4 fL (80.0-94.0); MEAN PLATELET VOLUME 10.7 fl (7.4-10.4); PLATELET 94 x1000/uL (130-400); RED BLOOD CELL COUNT 4.05 mill/uL (4.7-6.1); RED CELL DISTRIBUTION WIDTH 15.4 % (11.6-14.6)
[2019-05-11 08:00] VITALS: BP 106/76
[2019-05-11] MEDS: LOSARTAN POTASSIUM 25 MG TABLET PO SCH (09:00)
[2019-05-11] MEDS: APIXABAN 5 MG TABLET PO SCH ×2 (09:05→17:24)
[2019-05-11] MEDS: POTASSIUM CHLORIDE 20MEQ TABLET SR PO SCH (09:06)
[2019-05-11 10:17] LABS: PLATELET ESTIMATE DECREASED
[2019-05-11 12:00] VITALS: BP 127/79
[2019-05-11 15:42] VITALS: BP 105/71
[2019-05-11 20:00] VITALS: BP 118/79
[2019-05-12] VITALS: BP 132/76
[2019-05-12] MEDS: DILTIAZEM HCL 30MG TABLET PO SCH ×3 (01:10→14:20)
[2019-05-12 04:00] VITALS: BP 125/80
[2019-05-12] MEDS: SODIUM CHLORIDE 0.9% INJ 3ML FLUSH IVF SCH ×2 (05:10→14:19)
[2019-05-12 08:00] VITALS: BP 121/82
[2019-05-12] MEDS: LOSARTAN POTASSIUM 25 MG TABLET PO SCH (09:00)
[2019-05-12] MEDS: APIXABAN 5 MG TABLET PO SCH (09:00)
[2019-05-12] MEDS: POTASSIUM CHLORIDE 20MEQ TABLET SR PO SCH (09:19)
[2019-05-12 12:00] VITALS: BP 124/77
[2019-05-12 14:22] VITALS: BP 124/77
[2019-05-24] MEDS ORDERED: ATOR-2 PO (11:11)
[2019-05-24] MEDS ORDERED: FURO40TA5 PO (11:11)
[2019-05-24] MEDS ORDERED: CARV12.545 PO (11:11)
[2019-05-24] MEDS ORDERED: LOSA50TA41 PO (11:11)
[2019-05-24] MEDS ORDERED: ASPI-1158 MT (11:11)
[2019-05-24] MEDS ORDERED: CLOP75TA4 MT (11:11)
== END 2019-05-12 14:50 | disposition home or self-care (01) ==
LOC: ER 15:00 → 5WST 05-06 02:14 → EDBEDREQTM 05-06 02:16 → EDBEDREQ 05-06 02:16 → EDBEDREQDT 05-06 02:16 → ENRESERV 05-06 16:12 → CANRESERV 05-06 16:12 → ENRESERV 05-06 16:43
PROVIDERS: ADMIT Internal Medicine; ATTEND Internal Medicine
DX: K80.20 Calculus of gallbladder without cholecystitis without obstruction (principal); N17.0 Acute kidney failure with tubular necrosis; I50.23 Acute on chronic systolic (congestive) heart failure; I42.8 Other cardiomyopathies; D69.6 Thrombocytopenia, unspecified; I48.0 Paroxysmal atrial fibrillation; I11.0 Hypertensive heart disease with heart failure; N20.0 Calculus of kidney; K46.9 Unspecified abdominal hernia without obstruction or gangrene; D75.9 Disease of blood and blood-forming organs, unspecified; R74.0 Nonspecific elevation of levels of transaminase and lactic acid dehydrogenase [LDH]; I35.1 Nonrheumatic aortic (valve) insufficiency; E78.5 Hyperlipidemia, unspecified; F14.90 Cocaine use, unspecified, uncomplicated; J45.909 Unspecified asthma, uncomplicated; K76.89 Other specified diseases of liver; Z79.899 Other long term (current) drug therapy; Z86.73 Personal history of transient ischemic attack (TIA), and cerebral infarction without residual deficits; Z79.01 Long term (current) use of anticoagulants; Z79.82 Long term (current) use of aspirin
CPT/HCPCS: 36415; 71045; 74176; 76700; 80048; 80053; 80162; 80305; 81003; 82550; 82553; 83735; 83880; 84443; 84484; 85025; 93005; 93970; 94640; 96372; 99291; J1650; J1940; J2270; J3490; J7030